=== PATIENT | male | born 1965 | race Caucasian/White ===

== ENCOUNTER 2018-05-01 08:34 | Day surgery (SDC) | payer OTHER ==
[~2018-05-01] VITALS: Ht 182.9 cm; Wt 93.4 kg
[~2018-05-01 08:34] MED LIST: METF500C PO; PIOG30 PO
--- NOTE | 2018-05-01 08:53 | NUR ---
Ambulatory in Day SurgeryPatient states colon prep results clear. History, Chart, Medications and Allergies reviewed before start of procedure.Lungs clear T/O to Auscultation. Patient confirms NPO status and agrees with scheduled surgery. Pre-Op teaching done. Pt verbalizes understanding. Patient States Post-Procedure ride home has been arranged.
--- NOTE | 2018-05-01 09:03 | NUR ---
PT READY FOR PROCEDURE. NO QUESTIONS AT THIS TIME. RN EDUCATED PT ON PROCEDURE. NO COMPLAINTS. FATHER WILL BE PT RIDE HOME.
--- NOTE | 2018-05-01 09:21 | NUR ---
05/01/18 0921 Wilda Frost History, Chart, Medications and Allergies reviewed before start of procedure.PATIENT DETERMINED TO BE ASA APPROPRIATE FOR PROPOFOL SEDATION PRIOR TO START OF PROCEDURE BY .MONITOR INTACT WITH CONTINUOUS PULSE OXIMETRY AND INTERMITTENT BP.3-LEAD EKG REVIEWED WITH PHYSICIAN PRIOR TO START OF PROCEDURE.O2 VIA N/C INTACT THROUGHOUT SEDATION/PROCEDURE.
--- NOTE | 2018-05-01 09:34 | NUR ---
RECEIVED REPORT FROM ENDO RN ([email or web address]). RN STATES THAT PT WAS NOT FULLY "CLEANED OUT" COULD ONLY SEE TO THE TRANSVERSE COLON. PROCEDURE UNABLE TO BE COMPLETED. PT STATES THAT HE COMPLETED THE PREP AND OUTPUT THIS AM WAS A CLEAR YELLOW. FATHER AT BEDSIDE. PT LAYING ON SIDE NO COMPLAINTS. VSS
--- NOTE | 2018-05-01 09:48 | NUR ---
DR RUSSELL CAME AND SPOKE TO PT. PT AGREED TO REPEATING COLONOSCOPY TOMORROW. PT IS ON THE SCHEDULED AT 1000. STATES FOR PT TO REMAIN ON A CLEAR LIQUID DIET, COMPLETE THE ENTIRE 1 GALLON OF COLON PREP. ESSIE MARIE IS CALLING COLON PREP INTO [facility] FOR PT. PT CONTINUES TO LAY ON SIDE WITH NO COMPLAINTS.
--- NOTE | 2018-05-01 10:07 | NUR ---
Discharge instructions reviewed with patient. Patient verbalizes understanding. Copy given to patient to take home. PT AWARE OF PLAN FOR ANOTHER COLONOSCOPY TOMORROW. VERBALIZES UNDERSTANDING. NO QUESTIONS VOICED. Patient States Post-Procedure ride home has been arranged. PT HAS ALL D/C PAPERWORK. Discharged via wheelchair to private car for ride home.
--- NOTE | 2018-05-01 10:10 | NUR ---
PT HAS EYE GLASSES ON.
--- NOTE | 2018-05-01 10:20 | NUR ---
WHILE RN WAS WITH ANOTHER PT, THE PT WALKED OUT WITH PERSONAL BELONGINGS WITH D/C PAPERWORK BEFORE WC ARRIVED.
== END 2018-05-01 22:42 | disposition home or self-care (01) ==
LOC: ORSCMMR 08:34 → ORD 09:30 → ORSCMMR 22:42
PROVIDERS: Internal Medicine Gastroenterology
PROC: 0DJD8ZZ Inspection of Lower Intestinal Tract, Via Natural or Artificial Opening Endoscopic (ICD-10-PCS; principal; 2018-05-01 09:30)
DX: Z12.11 Encounter for screening for malignant neoplasm of colon (principal); E11.9 Type 2 diabetes mellitus without complications; Z79.84 Long term (current) use of oral hypoglycemic drugs; Z79.899 Other long term (current) drug therapy
CPT/HCPCS: 82947; J7120

== ENCOUNTER 2018-05-02 09:04 | Day surgery (SDC) | payer OTHER ==
[~2018-05-02] VITALS: Ht 182.9 cm; Wt 93.4 kg
--- NOTE | 2018-05-02 09:32 | NUR ---
History, Chart, Medications and Allergies reviewed before start of procedure. Patient states colon prep results clear. Patient States Post-Procedure ride home has been arranged.
--- NOTE | 2018-05-02 10:03 | NUR ---
05/02/18 1003 Juan M Interiano PATIENT DETERMINED TO BE ASA APPROPRIATE FOR PROPOFOL SEDATION PRIOR TO START OF PROCEDURE BY . 3-LEAD EKG REVIEWED WITH PHYSICIAN PRIOR TO START OF PROCEDURE.PATIENT CONFIRMS NPO STATUS AND AGREES WITH SCHEDULED PROCEDURE.History, Chart, Medications and Allergies reviewed before start of procedure.MONITOR INTACT WITH CONTINUOUS PULSE OXIMETRY AND INTERMITTENT BP.O2 VIA N/C INTACT THROUGHOUT SEDATION/PROCEDURE.
--- NOTE | 2018-05-02 10:36 | NUR ---
PT TO STEP. DENIES PAIN. ADVISED TO PASS AIR IF CRAMPY AND ABLE.
--- NOTE | 2018-05-02 10:53 | NUR ---
WRITTEN AND VERBAL D/C INSTUCTIONS GIVEN TO PT AND FATHER WITH STATED UNDERSTANDING.
== END 2018-05-02 22:49 | disposition home or self-care (01) ==
LOC: ORSCMMR 09:04 → ORD 10:00 → ORSCSDS 10:00 → ORSCMMR 22:49
PROVIDERS: Internal Medicine Gastroenterology
PROC: 0DBM8ZX Excision of Descending Colon, Via Natural or Artificial Opening Endoscopic, Diagnostic (ICD-10-PCS; principal; 2018-05-02 10:00)
DX: Z12.11 Encounter for screening for malignant neoplasm of colon (principal); D12.4 Benign neoplasm of descending colon; E11.9 Type 2 diabetes mellitus without complications; Z79.899 Other long term (current) drug therapy; K57.30 Diverticulosis of large intestine without perforation or abscess without bleeding
CPT/HCPCS: 82947; 88305; J7120

== ENCOUNTER → 2019-06-20 | Outpatient (CLI) | payer OTHER | END | disposition home or self-care (01) | LOC: LAB SHORT 09:52 → LAB 09:52 | DX: E11.9 Type 2 diabetes mellitus without complications (principal) | CPT/HCPCS: 82043 ==

== ENCOUNTER → 2023-04-04 | Outpatient (CLI) | payer OTHER | END | disposition home or self-care (01) | LOC: LAB 14:31 → LAB SHORT 14:31 | DX: L05.91 Pilonidal cyst without abscess (principal) | CPT/HCPCS: 87070; 87147; 87205 ==